=== PATIENT | female | born 1990 | race Caucasian/White ===

== ENCOUNTER 2017-11-09 19:01 | Emergency (ER) | payer OTHER ==
--- NOTE | 2017-11-09 19:32 | PDOC ---
Rapid Medical Evaluation Chief Complaint: Pain Time Seen by Provider: 11/09/17 19:28 Medical Evaluation: 11/09/17 19:29 spotting x 3 days + blood test on 10/07. + pelvic pain Hx; Myofacial syndrome A: vaginal bleeding in P; cbc beta hcg ua ucx US patient to ER for further management.
[2017-11-09 19:41] VITALS: TEMP 98.4; BMI 19.3
[2017-11-09 20:18] LABS: INR 1.12 (0.82-1.09); PROTHROMBIN TIME (PATIENT) 12.7 SEC (9.7-13.0)
[2017-11-09 20:22] LABS: BASO % 0.4 % (0-2.0); EOS % 0.4 % (0-4.5); HEMATOCRIT 40.6 % (32.4-45.2); HEMOGLOBIN 13.4 GM/dL (10.7-15.3); LYMPH % 29.2 % (8-40); MCH 31.6 pg (25.7-33.7); MCHC 33.1 g/dl (32.0-36.0); MEAN CELL VOLUME 95.6 fl (80-96); MEAN PLT VOLUME 9.7 fl (7.5-11.1); MONO % 7.2 % (3.8-10.2); NEUT % 62.8 % (42.8-82.8); PLATELET COUNT 221 K/MM3 (134-434); RBC 4.25 M/mm3 (3.60-5.2); RDW 13.1 % (11.6-15.6); WHITE BLOOD COUNT 8.5 K/mm3 (4.0-10.0)
--- NOTE | 2017-11-09 21:03 | PDOC ---
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 Denies nausea, vomiting, fevers, chills, constipation, diarrhea, chest pain, or other sick symptoms. Her has been uncomplicated with the exception of LLQ pain and equivocal USs ([facility] [place] of 1999 at that time). She follows for her care with Dr. Vieira. 11/09/17 21:28 Past History - Past Medical History Allergies/Adverse Reactions: Allergies Allergy/AdvReac Type Severity Reaction Status Date / Time No Known Allergies Allergy Verified 11/09/17 19:33 Home Medications: Ambulatory Orders NK [No Known Home Medication] 11/09/17 - Suicide/Smoking/Psychosocial Hx Smoking History: Never smoked Have you smoked in the past 12 months: No Information on smoking cessation initiated: No Hx Alcohol Use: No Drug/Substance Use Hx: No Review of Systems - Review of Systems Constitutional: No: Chills, Diaphoresis, Fever, Loss of Appetite HEENTM: No: Eye Pain, Blurred Vision, Tearing, Double Vision Respiratory: No: Cough, Orthopnea, Shortness of Breath, SOB with Exertion Cardiac (ROS): No: Chest Pain, Edema, Irregular Heart Rate ABD/GI: No: Diarrhea, Nausea, Vomiting : No: Burning, Dysuria, Discharge Musculoskeletal: No: Back Pain, Joint Pain Integumentary: No: Bruising, Lumps, Pallor, Pruritus Neurological: No: Headache, Numbness, Paresthesia Hematologic/Lymphatic: No: Anemia, Blood Clots, Easy Bleeding, Easy Bruising *Physical Exam - Vital Signs Last Vital Signs Temp Pulse Resp BP Pulse Ox 98.4 F 74 16 132/92 100 11/09/17 19:30 11/09/17 19:30 11/09/17 19:30 11/09/17 19:30 11/09/17 19:30 - Physical Exam General Appearance: Yes: Nourished, Appropriately Dressed. No: Apparent Distress HEENT: positive: EOMI, RE, Normal ENT Inspection, Normal Voice Neck: positive: Trachea midline, Normal Thyroid, Supple. negative: Tender, Rigid Respiratory/Chest: positive: Lungs Clear, Normal Breath Sounds. negative: Chest Tender, Respiratory Distress Cardiovascular: positive: Regular Rhythm, Regular Rate Female Pelvic Exam: positive: normal external exam, cervical os closed, normal adnexa, CMT, discharge, adnexal tenderness (left adnexal tenderness), other ( small amount of dried blood in the posterior vault without active source of bleeding). negative: lesions Gastrointestinal/Abdominal: positive: Normal Bowel Sounds, Flat, Soft. negative : Tender Musculoskeletal: positive: Normal Inspection. negative: CVA Tenderness Extremity: positive: Normal Capillary Refill, Normal Inspection, Normal Range of Motion. negative: Tender Integumentary: positive: Normal Color, Dry, Warm Neurologic: positive: Fully Oriented, Alert, Normal Mood/Affect, Normal Response , Motor Strength 10/22 ED Treatment Course - LABORATORY CBC & Chemistry Diagram: 11/09/17 19:50 - ADDITIONAL ORDERS Additional order review: 11/09/17 19:50 RBC 4.25 MCV 95.6 MCHC 33.1 RDW 13.1 MPV 9.7 Neutrophils % 62.8 Lymphocytes % 29.2 Monocytes % 7.2 Eosinophils % 0.4 Basophils % 0.4 Medical Decision Making - Medical Decision Making 27 year old female 11 weeks by LMP presenting with vaginal bleeding. Her US demonstrates a viable 8 w 1 day with good heart rate. Her labs are WNL and she is blood type O+. Her cervix is closed and UA is clean. Will DC with precautions for threatened . 11/09/17 21:35 *DC/Admit/Observation/Transfer Diagnosis at time of Disposition: Threatened , Vaginal bleeding before 22 weeks gestation - Discharge Dispostion Disposition: HOME Condition at time of disposition: Stable - Referrals Referrals: Tila Montemayor MD [Staff Physician] - - Patient Instructions Printed Discharge Instructions: DI for Vaginal Bleeding During Additional Instructions: Please return to the ED with any worsening bleeding. Please return to the ED on Tuesday for a repeat Beta HCG. Your beta HCG is still pending tonight. Please make an appointment to see your health center associate in 2-3 days. - Post Discharge Activity
--- NOTE | 2017-11-09 21:26 | PDOC ---
Attending Attestation - HPI HPI: 11/09/17 22:38 The patient is a 27 year old female, 8 wk and 2 days , , with past medical history of myofacial syndrome presents to the emergency department with vaginal bleeding. The patient reports on Tuesday she had intermittent vaginal clotting followed by Tuesday cramps. The patient reports she was fine earlier today until around 4:45 pm, she went to use the bathroom and noticed pinkish tint blood on the tissue. Denies any vaginal clots today or discharge. Denies any dysuria, hematuria, frequency or urgency to urinate. Denies any nausea, vomiting, diarrhea or constipation. Denies any fever, chills, chest pain or sob. COMPUTER REPAIR TECHNICIAN: Dr. Vieira PCP: None reported Allergies: NKDA Social history: No history of smoking, alcohol use or recreational drugs use. Surgical history: None reported. - Physicial Exam PE: 11/09/17 22:38 GENERAL: Awake, alert, and fully oriented, in no acute distress HEAD: No signs of trauma EYES: PERRLA, EOMI, sclera anicteric, conjunctiva clear ENT: Auricles normal inspection, hearing grossly normal, nares patent, oropharynx clear without exudates. Moist mucosa NECK: Normal ROM, supple, no lymphadenopathy, JVD, or masses LUNGS: Breath sounds equal, clear to auscultation bilaterally. No wheezes, and no crackles HEART: Regular rate and rhythm, normal S1 and S2, no murmurs, rubs or gallops ABDOMEN: Soft, nontender, normoactive bowel sounds. No guarding, no rebound. No masses Pelvic exam: (+) Normal external exam, cervical os closed, normal adnexa, CMT, left adnexal tenderness, small amount of dried blood in the posterior vault without active source of bleeding. No lesions. EXTREMITIES: Normal range of motion, no edema. No clubbing or cyanosis. No cords, erythema, or tenderness NEUROLOGICAL: Cranial nerves II through XII grossly intact. Normal speech, normal gait SKIN: Warm, Dry, normal turgor, no rashes or lesions noted. - Medical Decision Making 11/09/17 22:38 Documentation prepared by Kassandra Willis, acting as medical associate for Camille Posey DO. <Kassandra Willis - Last Filed: 11/09/17 22:38> - Resident Resident Name: Nydia Peres - ED Attending Attestation I have performed the following: I have examined & evaluated the patient, The case was reviewed & discussed with the resident, I agree w/resident's findings & plan, Exceptions are as noted - Medical Decision Making 11/09/17 21:26 I, Dr. Camille Posey, DO, attest that this document has been prepared under my direction and personally reviewed by me in its entirety. I further attest, that it accurately reflects all work, treatment, procedures and medical decision -making performed by me. 11/09/17 22:33 a/p: 27yo at 8 weeks with vaginal spotting and lower pelvic pain -concern for threatened ab -will obtain labs, ultrasound, type and screen -pelvic exam with TTP over cervix - pt denies STD hx, however, CMT and adnexal ttp will treat with rocephin and azithro will send GC/chla testing -will monitor and reassess 11/09/17 22:35 pt is O+ on labs 11/10/17 00:41 beta hcg pending due to lab machine malfunction ua negative stable for d/c to home discussed all reasons to return to the ED and need for repeat beta hcg on tuesday discussed all erasons to follow up with her PMD and her nature photographer answered all questions <Camille Posey - Last Filed: 11/10/17 00:45> Discharge Disposition - Discharge Dispostion Decision to Admit order: No <Camille Posey - Last Filed: 11/10/17 00:45> - Diagnosis Threatened , Vaginal bleeding before 22 weeks gestation - Discharge Dispostion Disposition: HOME Condition at time of disposition: Stable - Referrals Referrals: Tila Montemayor MD [Staff Physician] - - Patient Instructions Printed Discharge Instructions: DI for Vaginal Bleeding During Additional Instructions: Please return to the ED with any worsening bleeding. Please return to the ED on Tuesday for a repeat Beta HCG. Your beta HCG is still pending tonight. Please make an appointment to see your or scrub tech in 2-3 days.
[2017-11-09] MEDS ORDERED: AZITHROMYCIN 1 GM PACKET PO ONE (22:06)
[2017-11-09] MEDS ORDERED: AZITHROMYCIN 250 MG TABLET ONE (22:36)
[2017-11-09] MEDS ORDERED: cefTRIAXone SODIUM 1 GM VIAL ONE (22:36)
[2017-11-09] MEDS ORDERED: LIDOCAINE HCL 1%, 10 MG/ML (20ML VIAL) ONE (22:37)
[2017-11-10 00:32] LABS: URINE APPEARANCE CLEAR; URINE BILIRUBIN NEGATIVE (<2.0 mg/dL); URINE COLOR STRAW; URINE GLUCOSE (UA) NEGATIVE (NEGATIVE); URINE KETONE NEGATIVE (NEGATIVE); URINE LEUK ESTERASE NEGATIVE (NEGATIVE); URINE NITRITE NEGATIVE (NEGATIVE); URINE PROTEIN NEGATIVE (NEGATIVE); URINE UROBILINOGEN NEGATIVE mg/dL (0.2-1.0)
[2017-11-10 00:35] LABS: EPI CELLS RARE /HPF (FEW); URINE MUCUS RARE
[2017-11-10 00:49] VITALS: BP 128/76; PULSE 79
== END 2017-11-10 00:49 | disposition home or self-care (01) ==
LOC: JER 19:01
DX: O26.891 Other specified pregnancy related conditions, first trimester (principal); Z3A.11 11 weeks gestation of pregnancy; O20.0 Threatened abortion
CPT/HCPCS: 36415; 76817-TC; 81003; 81015; 84702; 85025; 85610; 86850; 86900; 86901; 87086; 87491; 87591; 99284-25